=== PATIENT | female | born 1975 | race Caucasian/White ===

== ENCOUNTER → 2024-03-17 | Outpatient (CLI) | payer BC ==
[~2024-03-17] MED LIST: ACET-907 PO; ACET500T15 PO; AMOX875T2 PO; BACI1TAB20 PO; CVS50CAP PO; CYAN-11 PO; DOCU100C16 PO; FERR1TAB8 PO; GASTROGRAFIN SOLUTION 30ML As Ordered ONE; ISOVUE-370 76% 100ML VIAL As Ordered ONE; LISI2.5T9 PO; SENN-52 PO; SERT25TA21 PO; SIME125T PO; [UNRECOGNIZED DRUG - CODE] PO; [UNRECOGNIZED DRUG - CODE] PO
== END ==
LOC: M RAD 10:02
PROVIDERS: ATTEND Internal Medicine
DX: K65.1 Peritoneal abscess (principal); Z90.49 Acquired absence of other specified parts of digestive tract; R16.1 Splenomegaly, not elsewhere classified; R59.0 Localized enlarged lymph nodes; K43.9 Ventral hernia without obstruction or gangrene; Z95.828 Presence of other vascular implants and grafts
CPT/HCPCS: 74177; Q9963; Q9967